=== PATIENT | male | born 1965 | race Caucasian/White ===

== ENCOUNTER → 2018-09-24 13:49 | Outpatient (CLI) | payer OTHER ==
--- NOTE | 2018-09-28 12:17 | EC ---
PATIENT:VALENTINO ODELL DATE OF SERVICE: 09/24/18 SEX: M MEDICAL RECORD: [id number] DATE OF : 67 [facility] AGE OF PATIENT: 53 ADMISSION DATE: 09/24/18 REFERRING PHYSICIAN: INTERPRETING PHYSICIAN: FEDERICO POWELL MD ECHOCARDIOGRAM REPORT ECHO CHARGES 4 ECHO COMPLETE Date: 09/24/18 CLINICAL DIAGNOSIS: CP/MURMUR ECHOCARDIOGRAPHIC MEASUREMENTS (adult normal given) AC root (d.<3.7cm) 3.1 cm LV Septum d (<1.2 cm> 1.3 cm Valve Excursion 2.2 cm LV Septum (systole) 1.7 cm Left Atria (s.<4.0cm> 4.3 cm LVPW d(<1.2cm) 1.3 cm RV (d.<2.3cm) 3.3 cm LVPW (sytole) 2.1 cm LV diastole(<5.6CM) 4.9 cm MV E-F(>70mm/sec) cm LV systole 2.6 cm LVOT Diameter 2.0 cm MV exc.(>10mm) cm Est.ejection fraction (50-75%) % DOPPLER: LVIT cm/sec A 41.0 cm/sec E 66.0 cm/sec LA cm/sec RVSP 34.2 mmHg LVOT 112 cm/sec AOP1/2T m/s Asc. Ao 131 cm/sec RVOT 47.0 cm/sec RA cm/sec PA 124 cm/sec AV Gradient Peak 6.8 mmHg AV Mean 3.5 mmHg AV Area 2.7 cm MV Gradient Peak 3.4 mmHg MV Mean 1.0 mmHg MV Area cm COMMENTS: OP - HC Fish Cake Maker: 1 MICHELE SHERIDANOE Lawn Mower: 3 Dr. Day TAPE# PACS Pericardial Effusion N DATE OF SERVICE: Adequate 2-D echo, color flow and spectral Doppler, and M-mode. Borderline LVH. LV internal dimension is normal. Wall motion is normal. EF is greater than or equal to 55%. Aortic valve is tricuspid. No evidence of stenosis by Doppler interrogation. Left atrium mildly dilated at 4.3 cm. Mitral valve shows no prolapse. Trivial MR. Right-sided chambers are grossly normal. Trivial TR. ECHOCARDIOGRAM REPORT [id number] VALENTINO ODELL TRANSINT:[id number] Voice Confirmation ID: [id number] DOCUMENT ID: [id number] FEDERICO POWELL MD at 1217 CC: [id number] DICTATION DATE: 09/25/18 1516 SCRAP SORTER: 09/25/18 1621 DEP CLI 09/24/18 [place] [id number] [place] [id number]
--- NOTE | 2018-09-28 12:17 | ST ---
PATIENT:VALENTINO ODELL MEDICAL RECORD: [id number] SEX: M LOCATION:[facility] ORDER #: ADMISSION DATE: 09/24/18 AGE OF PATIENT: 53 REFERRING PHYSICIAN: INTERPRETING PHYSICIAN: FEDERICO POWELL MD DATE OF SERVICE: 09/25/2018 PROCEDURE: Treadmill stress test. Baseline ECG is normal. Exercised for 10 minutes on Armin protocol. Maximum heart rate is 152 beats per minute, greater than 85% max predicted. No ECG change of ischemia. No symptoms of ischemia. Normal blood pressure response to exercise. No arrhythmias noted. Good exercise tolerance for age. TRANSINT:[id number] Voice Confirmation ID: [id number] DOCUMENT ID: [id number] FEDERICO POWELL MD at 1217 CC: [id number] DICTATION DATE: 09/25/18 1459 MANAGEMENT INSTRUCTOR: 09/25/18 1558 DEP CLI 09/24/18 [place] [id number] [place] [address]
== END | disposition home or self-care (01) ==
LOC: D.HCCARDIO 13:49
PROVIDERS: ATTEND Internal Medicine Interventional Cardiology
DX: R06.02 Shortness of breath (principal)